=== PATIENT | female | born 1940 | race Caucasian/White ===

== ENCOUNTER 2021-10-01 06:15 | Day surgery (SDC) | payer OTHER ==
[2021-09-28 12:37] LABS: COVID AG,FIA SOURCE NASOPHARYNGEAL
[~2021-10-01] VITALS: Ht 154.9 cm; Wt 58.6 kg
[~2021-10-01 06:15] MED LIST: SODIUM CHLORIDE 0.9% 1,000 ML ONE
[2021-10-01] MEDS ORDERED: SODIUM CHLORIDE 0.9% 1,000 ML IV ONE (06:30)
[2021-10-01] MEDS ORDERED: FentaNYL CITRATE PF 100 MCG/2 ML VIAL ONE (06:49)
[2021-10-01] MEDS ORDERED: MIDAZOLAM HCL 5 MG/ML VIAL ONE (06:49)
[2021-10-01] MEDS ORDERED: PRED10 PO (07:37)
[2021-10-01] MEDS ORDERED: ALEN70TA65 PO (07:37)
[2021-10-01] MEDS ORDERED: ASCO500 PO (07:37)
[2021-10-01] MEDS ORDERED: MONT-35 PO (07:37)
[2021-10-01] MEDS ORDERED: CHOL-35 PO (07:37)
[2021-10-01] MEDS ORDERED: FAMO20 PO (07:37)
[2021-10-01] MEDS ORDERED: OMEP20 PO (07:37)
[2021-10-01] MEDS ORDERED: SIMV-260 PO (07:37)
[2021-10-01] MEDS ORDERED: DOXY-354 PO (07:37)
[2021-10-01] MEDS ORDERED: MethylPREDNISolone SOD SUCC 125 MG/2 ML VIAL IVP ONE (09:30)
[2021-10-01] MEDS ORDERED: MethylPREDNISolone SOD SUCC 125 MG/2 ML VIAL ONE (09:44)
[2021-10-01] MEDS ORDERED: ALBUTEROL SULFATE 2.5 MG/0.5 ML NEB SOLUTION NEB ONE (14:39)
[2021-10-01] MEDS ORDERED: BENZOCAINE 20% 50 MCG/SPRAY 57 GM ONE (14:39)
[2021-10-01] MEDS ORDERED: LIDOCAINE 2% 30 ML JELLY ONE (14:39)
[2021-10-01] MEDS ORDERED: OXYGEN THERAPY IH SCH (20:00)
[2021-10-02] MEDS ORDERED: SODIUM CHLORIDE 0.9% 1,000 ML IV ONE (06:30)
[2021-10-04] MEDS ORDERED: SODIUM CHLORIDE 0.9% 1,000 ML IV ONE (06:30)
== END 2021-10-01 11:15 | disposition home or self-care (01) ==
LOC: SURGERY 06:15
PROVIDERS: ATTEND Internal Medicine Critical Care Medicine
DX: J38.4 Edema of larynx (principal); B37.0 Candidal stomatitis; J47.9 Bronchiectasis, uncomplicated; J39.8 Other specified diseases of upper respiratory tract; Z79.899 Other long term (current) drug therapy; Z98.890 Other specified postprocedural states; Z90.710 Acquired absence of both cervix and uterus; Z79.82 Long term (current) use of aspirin
CPT/HCPCS: 31623; 31624; 71045; 87015; 87070; 87077; 87101; 87205; 87206; 87220; 87426; 88108; 88184; 88185; 88312; C9803; J2250; J2930; J3010; J7030; 87186; J7613

== ENCOUNTER 2023-04-03 06:59 | Day surgery (SDC) | payer OTHER ==
[~2023-04-03] VITALS: Ht 157.5 cm; Wt 62.7 kg
[~2023-04-03 06:59] MED LIST changes: +ALEN70TA65 PO; +ASCO500 PO; +CHOL25TA4 PO; +DOXY-354 PO; +FAMO20 PO; +MONT-35 PO; +OMEP20 PO; +PRED-729 PO; +SIMV-260 PO; -SODIUM CHLORIDE 0.9% 1,000 ML ONE
[2023-04-03] MEDS ORDERED: SODIUM CHLORIDE 0.9% 1,000 ML IV ONE (07:00)
[2023-04-03] MEDS ORDERED: ALBUTEROL SULFATE 2.5 MG/0.5 ML NEB SOLUTION NEB ONE (07:00)
[2023-04-03] MEDS ORDERED: LIDOCAINE 2% 11 ML JELLY TP ONE (07:00)
[2023-04-03] MEDS ORDERED: BENZOCAINE 20% 50 MCG/SPRAY 57 GM TP ONE (07:00)
[2023-04-03] MEDS ORDERED: LIDOCAINE 4% 50 ML SOLUTION TP ONE (07:00)
[2023-04-03] MEDS ORDERED: SODIUM CHLORIDE 0.9% 1,000 ML ONE (07:48)
[2023-04-03] MEDS ORDERED: MIDAZOLAM HCL 2 MG/2 ML VIAL ONE (08:09)
[2023-04-03] MEDS ORDERED: FentaNYL CITRATE PF 100 MCG/2 ML VIAL ONE (08:10)
[2023-04-03] MEDS ORDERED: ROSU10TA72 PO (09:08)
[2023-04-03] MEDS ORDERED: OS500 PO (09:08)
[2023-04-03] MEDS ORDERED: ESOM20CA31 PO (09:08)
[2023-04-03] MEDS ORDERED: LOSA-381 PO (09:08)
[2023-04-03] MEDS ORDERED: RIVA15TA PO (09:08)
[2023-04-03] MEDS ORDERED: MethylPREDNISolone SOD SUCC 125 MG/2 ML VIAL ONE (09:08)
[2023-04-03] MEDS ORDERED: ALBU18HF12 IH (09:08)
[2023-04-03] MEDS ORDERED: DILT60TA3 PO (09:08)
[2023-04-03] MEDS ORDERED: BUDE10.7 IH (09:08)
[2023-04-03] MEDS ORDERED: MethylPREDNISolone SOD SUCC 125 MG/2 ML VIAL IVP ONE (10:00)
== END 2023-04-03 12:05 | disposition home or self-care (01) ==
LOC: SURGERY 06:59
PROVIDERS: ATTEND Internal Medicine Critical Care Medicine
DX: J38.4 Edema of larynx (principal); B37.0 Candidal stomatitis; K21.9 Gastro-esophageal reflux disease without esophagitis; E78.00 Pure hypercholesterolemia, unspecified; I48.91 Unspecified atrial fibrillation; M81.0 Age-related osteoporosis without current pathological fracture; Z79.899 Other long term (current) drug therapy; Z79.82 Long term (current) use of aspirin; Z87.01 Personal history of pneumonia (recurrent)
CPT/HCPCS: 31623; 88112; 88184; 88185; 87206; 87101; 87220; 87070; 93005; 31624; 94640; 71045; 87015; J3010; J2250; J2930; Q9967; J7030; J7613; Z7610